=== PATIENT | male | born 1990 | race Caucasian/White ===

== ENCOUNTER 2016-11-22 20:45 | Emergency (ER) | payer MEDICAID ==
[~2016-11-22] VITALS: Ht 165.1 cm; Wt 81.8 kg
[~2016-11-22 20:45] MED LIST: HALO10TA15 PO; RISP3TAB44 PO
[2016-11-22 21:26] LABS: BASOPHILS % (AUTO) 0.2 % (0.0-2.0); EOSINOPHILS % (AUTO) 0.7 % (1.0-6.0); HEMATOCRIT 38.2 % (41-53); HEMOGLOBIN 13.1 g/dL (13.5-17.5); LYMPHOCYTES % (AUTO) 12.9 % (22.0-44.0); MEAN CORPUSCULAR HEMOGLOBIN 28.7 pg (26.0-34.0); MEAN CORPUSCULAR HGB CONC 34.3 G/dL (31.0-37.0); MEAN CORPUSCULAR VOLUME 84 fL (80-100); MONOCYTES # (AUTO) 0.5 K/uL (0.1-1.0); MONOCYTES % (AUTO) 5.9 % (2.0-9.0); NEUTROPHILS # (AUTO) 6.3 K/uL (1.8-7.7); NEUTROPHILS % (AUTO) 80.3 % (40.0-70.0); PLATELET COUNT (AUTO) 302 K/uL (150-450); RED BLOOD CELL COUNT(AUTO) 4.56 MIL/uL (4.50-5.90); RED CELL DISTRIBUTION WIDTH 13.5 % (11.5-14.5); WHITE BLOOD COUNT (AUTO) 7.9 K/uL (4.5-11.0)
[2016-11-22 21:32] LABS: ANION GAP 8 mmol/L (8-16); CALCIUM, TOTAL 8.8 mg/dL (8.8-10.5); CARBON DIOXIDE 32 mmol/L (22-29); CHLORIDE 102 mmol/L (98-107); GLOMERULAR FILTR. RATE CALC > 60 mL/min (>60); POTASSIUM 3.7 mmol/L (3.5-5.1); SODIUM SERUM 142 mmol/L (136-145); UREA NITROGEN, BLOOD 12 mg/dL (7-18)
[2016-11-22 21:38] LABS: ALANINE AMINOTRANSFERASE 44 U/L (12-78); ALBUMIN 3.7 g/dL (3.4-5.0); ASPARTATE AMINOTRANSFERASE 26 U/L (15-37); BILIRUBIN,TOTAL 0.4 mg/dL (0.1-1.0)
[2016-11-22 22:34] VITALS: BP 107/49
== END 2016-11-22 22:39 | disposition home or self-care (01) ==
LOC: EMS 20:47
DX: F20.9 Schizophrenia, unspecified (principal); R04.0 Epistaxis; R55 Syncope and collapse; F18.10 Inhalant abuse, uncomplicated; R11.10 Vomiting, unspecified; F17.210 Nicotine dependence, cigarettes, uncomplicated; F12.90 Cannabis use, unspecified, uncomplicated
CPT/HCPCS: 36415; 80053; 85025; 99284; 99406; G0480

== ENCOUNTER 2017-11-16 18:15 | Emergency (ER) | payer SELFPAY ==
[~2017-11-16] VITALS: Ht 167.6 cm; Wt 81.5 kg
[2017-11-16 19:14] LABS: BASOPHILS % (AUTO) 0.4 % (0.0-2.0); EOSINOPHILS % (AUTO) 0.8 % (1.0-6.0); HEMATOCRIT 38.4 % (41-53); HEMOGLOBIN 13.3 g/dL (13.5-17.5); LYMPHOCYTES # (AUTO) 1.3 K/uL (1.0-4.8); LYMPHOCYTES % (AUTO) 19.1 % (22.0-44.0); MEAN CORPUSCULAR HEMOGLOBIN 29.3 pg (26.0-34.0); MEAN CORPUSCULAR HGB CONC 34.7 G/dL (31.0-37.0); MEAN CORPUSCULAR VOLUME 85 fL (80-100); MONOCYTES # (AUTO) 0.8 K/uL (0.1-1.0); MONOCYTES % (AUTO) 11.3 % (2.0-9.0); NEUTROPHILS # (AUTO) 4.7 K/uL (1.8-7.7); NEUTROPHILS % (AUTO) 68.4 % (40.0-70.0); PLATELET COUNT (AUTO) 294 K/uL (150-450); RED BLOOD CELL COUNT(AUTO) 4.54 MIL/uL (4.50-5.90); RED CELL DISTRIBUTION WIDTH 13.9 % (11.5-14.5)
[2017-11-16 19:25] LABS: ANION GAP 10 mmol/L (8-16); CALCIUM, TOTAL 8.7 mg/dL (8.8-10.5); CARBON DIOXIDE 25 mmol/L (22-29); CHLORIDE 105 mmol/L (98-107); CREATININE 0.92 mg/dL (0.60-1.30); GLOMERULAR FILTR. RATE CALC > 60 mL/min (>60); GLUCOSE,RANDOM 131 mg/dL (70-110); POTASSIUM 3.6 mmol/L (3.5-5.1); SODIUM SERUM 140 mmol/L (136-145); UREA NITROGEN, BLOOD 15 mg/dL (7-18)
[2017-11-16 19:31] LABS: ALANINE AMINOTRANSFERASE 23 U/L (12-78); ALBUMIN 3.7 g/dL (3.4-5.0); ALKALINE PHOSPHATASE 72 U/L (46-116); ASPARTATE AMINOTRANSFERASE 23 U/L (15-37); BILIRUBIN,TOTAL 0.8 mg/dL (0.1-1.0); TOTAL PROTEIN, SERUM 7.2 g/dL (6.4-8.2)
[2017-11-16 20:25] LABS: AMPHET/METH SCREEN,URINE POSITIVE (NEGATIVE); BARBITURATE SCREEN, URINE NEGATIVE (NEGATIVE); BENZODIAZEPINES SCREEN,URINE NEGATIVE (NEGATIVE); CANNABINOID SCREEN,URINE POSITIVE (NEGATIVE); COCAINE SCREEN,URINE NEGATIVE (NEGATIVE); METHADONE SCREEN, URINE NEGATIVE (NEGATIVE); OPIATE SCREEN,URINE NEGATIVE (NEGATIVE); PHENCYCLIDINE SCREEN,URINE NEGATIVE (NEGATIVE)
[2017-11-16 21:54] VITALS: BP 119/82
== END 2017-11-16 21:57 | disposition home or self-care (01) ==
LOC: EMS 18:16
DX: F18.10 Inhalant abuse, uncomplicated (principal); F15.10 Other stimulant abuse, uncomplicated; F12.90 Cannabis use, unspecified, uncomplicated; F17.210 Nicotine dependence, cigarettes, uncomplicated
CPT/HCPCS: 36415; 80053; 80307; 85025; 99284; G0480

== ENCOUNTER 2017-11-24 16:33 | Emergency (ER) | payer SELFPAY ==
[~2017-11-24] VITALS: Ht 167.6 cm; Wt 81.8 kg
[2017-11-24 17:03] VITALS: BP 114/69
[2017-11-24 19:41] LABS: BASOPHILS % (AUTO) 0.3 % (0.0-2.0); EOSINOPHILS % (AUTO) 0.3 % (1.0-6.0); HEMOGLOBIN 14.4 g/dL (13.5-17.5); LYMPHOCYTES # (AUTO) 1.3 K/uL (1.0-4.8); LYMPHOCYTES % (AUTO) 16.7 % (22.0-44.0); MEAN CORPUSCULAR HEMOGLOBIN 29.4 pg (26.0-34.0); MEAN CORPUSCULAR HGB CONC 34.3 G/dL (31.0-37.0); MEAN CORPUSCULAR VOLUME 86 fL (80-100); MONOCYTES # (AUTO) 0.5 K/uL (0.1-1.0); MONOCYTES % (AUTO) 6.5 % (2.0-9.0); NEUTROPHILS # (AUTO) 6.2 K/uL (1.8-7.7); NEUTROPHILS % (AUTO) 76.2 % (40.0-70.0); PLATELET COUNT (AUTO) 395 K/uL (150-450); RED BLOOD CELL COUNT(AUTO) 4.89 MIL/uL (4.50-5.90); RED CELL DISTRIBUTION WIDTH 13.8 % (11.5-14.5)
[2017-11-24 20:00] LABS: ANION GAP 10 mmol/L (8-16); CALCIUM, TOTAL 8.8 mg/dL (8.8-10.5); CARBON DIOXIDE 28 mmol/L (22-29); CHLORIDE 104 mmol/L (98-107); CREATININE 0.88 mg/dL (0.60-1.30); GLOMERULAR FILTR. RATE CALC > 60 mL/min (>60); GLUCOSE,RANDOM 83 mg/dL (70-110); POTASSIUM 3.5 mmol/L (3.5-5.1); SODIUM SERUM 142 mmol/L (136-145); UREA NITROGEN, BLOOD 9 mg/dL (7-18)
[2017-11-24 20:07] LABS: ALANINE AMINOTRANSFERASE 24 U/L (12-78); ALBUMIN 3.9 g/dL (3.4-5.0); ALKALINE PHOSPHATASE 93 U/L (46-116); ASPARTATE AMINOTRANSFERASE 19 U/L (15-37); BILIRUBIN,TOTAL 0.4 mg/dL (0.1-1.0); TOTAL PROTEIN, SERUM 7.7 g/dL (6.4-8.2)
== END 2017-11-24 20:10 | disposition home or self-care (01) ==
LOC: EMS 16:34
DX: F29 Unspecified psychosis not due to a substance or known physiological condition (principal); L55.1 Sunburn of second degree; F18.10 Inhalant abuse, uncomplicated; F12.10 Cannabis abuse, uncomplicated; F17.210 Nicotine dependence, cigarettes, uncomplicated; F20.9 Schizophrenia, unspecified; Z79.899 Other long term (current) drug therapy
CPT/HCPCS: 36415; 80053; 85025; 99285; 99406; G0480

== ENCOUNTER 2017-11-25 22:04 | Emergency (ER) | payer SELFPAY ==
[~2017-11-25] VITALS: Ht 172.7 cm; Wt 81.8 kg
[2017-11-26 03:55] VITALS: BP 112/72
== END 2017-11-26 03:57 | disposition home or self-care (01) ==
LOC: EMS 22:04
DX: F19.10 Other psychoactive substance abuse, uncomplicated (principal); F20.9 Schizophrenia, unspecified; F17.210 Nicotine dependence, cigarettes, uncomplicated
CPT/HCPCS: 99283; 99406

== ENCOUNTER 2017-11-26 17:43 | Emergency (ER) | payer SELFPAY ==
[~2017-11-26] VITALS: Ht 167.6 cm; Wt 81.5 kg
[2017-11-26 21:27] LABS: BASOPHILS % (AUTO) 0.5 % (0.0-2.0); EOSINOPHILS % (AUTO) 1.2 % (1.0-6.0); HEMATOCRIT 42.4 % (41-53); HEMOGLOBIN 14.2 g/dL (13.5-17.5); LYMPHOCYTES # (AUTO) 1.4 K/uL (1.0-4.8); LYMPHOCYTES % (AUTO) 29.4 % (22.0-44.0); MEAN CORPUSCULAR HEMOGLOBIN 28.9 pg (26.0-34.0); MEAN CORPUSCULAR HGB CONC 33.6 G/dL (31.0-37.0); MEAN CORPUSCULAR VOLUME 86 fL (80-100); MONOCYTES # (AUTO) 0.4 K/uL (0.1-1.0); MONOCYTES % (AUTO) 7.8 % (2.0-9.0); NEUTROPHILS % (AUTO) 61.1 % (40.0-70.0); PLATELET COUNT (AUTO) 334 K/uL (150-450); RED BLOOD CELL COUNT(AUTO) 4.93 MIL/uL (4.50-5.90); RED CELL DISTRIBUTION WIDTH 13.5 % (11.5-14.5)
[2017-11-26 21:44] LABS: AMPHET/METH SCREEN,URINE NEGATIVE (NEGATIVE); BARBITURATE SCREEN, URINE NEGATIVE (NEGATIVE); BENZODIAZEPINES SCREEN,URINE NEGATIVE (NEGATIVE); CANNABINOID SCREEN,URINE NEGATIVE (NEGATIVE); COCAINE SCREEN,URINE NEGATIVE (NEGATIVE); METHADONE SCREEN, URINE NEGATIVE (NEGATIVE); OPIATE SCREEN,URINE NEGATIVE (NEGATIVE)
[2017-11-26 21:45] LABS: PHENCYCLIDINE SCREEN,URINE NEGATIVE (NEGATIVE)
[2017-11-26 22:10] LABS: ALANINE AMINOTRANSFERASE 25 U/L (12-78); ALBUMIN 3.7 g/dL (3.4-5.0); ALKALINE PHOSPHATASE 88 U/L (46-116); ANION GAP 8 mmol/L (8-16); ASPARTATE AMINOTRANSFERASE 19 U/L (15-37); BILIRUBIN,TOTAL 0.8 mg/dL (0.1-1.0); CALCIUM, TOTAL 8.6 mg/dL (8.8-10.5); CARBON DIOXIDE 27 mmol/L (22-29); CHLORIDE 104 mmol/L (98-107); GLOMERULAR FILTR. RATE CALC > 60 mL/min (>60); GLUCOSE,RANDOM 75 mg/dL (70-110); POTASSIUM 3.7 mmol/L (3.5-5.1); SODIUM SERUM 139 mmol/L (136-145); TOTAL PROTEIN, SERUM 7.5 g/dL (6.4-8.2); UREA NITROGEN, BLOOD 8 mg/dL (7-18)
[2017-11-26 23:32] VITALS: BP 120/70
== END 2017-11-26 23:40 | disposition home or self-care (01) ==
LOC: EMS 17:43
DX: F20.9 Schizophrenia, unspecified (principal); F12.10 Cannabis abuse, uncomplicated; F17.210 Nicotine dependence, cigarettes, uncomplicated; Z59.0 Homelessness
CPT/HCPCS: 36415; 80053; 80307; 85025; 99284; G0480

== ENCOUNTER 2018-03-10 15:14 | Inpatient (IN) | payer MEDICAID ==
[~2018-03-10] VITALS: Ht 167.6 cm; Wt 79.8 kg
[2018-03-10 16:18] VITALS: BP 148/100
[2018-03-10] MEDS ORDERED: OLAN2.5T3 PO (16:57)
[2018-03-10 18:01] VITALS: BP 133/85
[2018-03-10] MEDS ORDERED: BACITRACIN 28.4 GM OINTMENT TP PRN (20:00)
[2018-03-10] MEDS ORDERED: PETROLATUM,WHITE 71 GM JELLY TP PRN (20:00)
[2018-03-10] MEDS ORDERED: BENZOCAINE/MENTHOL LOZENGE MM PRN (20:00)
[2018-03-10] MEDS ORDERED: MAG HYDROX/AL HYDROX/SIMETH ES 30 ML SUSPENSION UDCUP PO PRN (20:00)
[2018-03-10] MEDS ORDERED: ONDANSETRON HCL 4 MG TABLET PO PRN (20:00)
[2018-03-10] MEDS ORDERED: ACETAMINOPHEN 325 MG TABLET PO PRN (20:00)
[2018-03-10] MEDS ORDERED: LOPERAMIDE HCL 2 MG CAPSULE PO PRN (20:00)
[2018-03-10] MEDS ORDERED: CloNIDine HCL 0.1 MG TABLET PO PRN (20:00)
[2018-03-10] MEDS ORDERED: MAGNESIUM HYDROXIDE SUSPENSION 30 ML UDCUP PO PRN (20:00)
[2018-03-10] MEDS ORDERED: OMEPRAZOLE 20 MG CAPSULE PO PRN (20:00)
[2018-03-10] MEDS ORDERED: DOCUSATE SODIUM 100 MG CAPSULE PO PRN (20:00)
[2018-03-10] MEDS ORDERED: ALBUTEROL SULFATE HFA 90 MCG/PUFF 8 GM INHALER IH PRN (20:00)
[2018-03-10] MEDS: OLANZapine 10 MG TABLET PO SCH (20:03)
[2018-03-10] MEDS: ZOLPIDEM TARTRATE 10 MG TABLET PO PRN (21:15)
[2018-03-11 06:23] VITALS: BP 112/68
[2018-03-11 07:49] LABS: BASOPHILS % (AUTO) 0.7 % (0.0-2.0); EOSINOPHILS % (AUTO) 2.5 % (1.0-6.0); HEMATOCRIT 48.5 % (41-53); HEMOGLOBIN 16.3 g/dL (13.5-17.5); LYMPHOCYTES # (AUTO) 1.6 K/uL (1.0-4.8); LYMPHOCYTES % (AUTO) 32.9 % (22.0-44.0); MEAN CORPUSCULAR HEMOGLOBIN 29.6 pg (26.0-34.0); MEAN CORPUSCULAR HGB CONC 33.5 G/dL (31.0-37.0); MEAN CORPUSCULAR VOLUME 88 fL (80-100); MONOCYTES # (AUTO) 0.5 K/uL (0.1-1.0); MONOCYTES % (AUTO) 10.7 % (2.0-9.0); NEUTROPHILS # (AUTO) 2.6 K/uL (1.8-7.7); NEUTROPHILS % (AUTO) 53.2 % (40.0-70.0); PLATELET COUNT (AUTO) 243 K/uL (150-450); RED BLOOD CELL COUNT(AUTO) 5.49 MIL/uL (4.50-5.90); RED CELL DISTRIBUTION WIDTH 13.3 % (11.5-14.5)
[2018-03-11 07:56] LABS: HEMOGLOBIN A1C 5.4 % (4.5-6.2)
[2018-03-11 08:01] VITALS: BP 110/64
[2018-03-11 08:50] LABS: ALANINE AMINOTRANSFERASE 29 U/L (12-78); ALKALINE PHOSPHATASE 106 U/L (46-116); ANION GAP 8 mmol/L (8-16); ASPARTATE AMINOTRANSFERASE 19 U/L (15-37); BILIRUBIN,TOTAL 0.4 mg/dL (0.1-1.0); CALCIUM, TOTAL 9.1 mg/dL (8.8-10.5); CARBON DIOXIDE 30 mmol/L (22-29); CHLORIDE 106 mmol/L (98-107); CHOL/HDL RATIO 2.9 (4.2-7.3); CHOLESTEROL 127 mg/dL (131-200); CREATININE 0.86 mg/dL (0.60-1.30); FREE T4 (FREE THYROXINE) 0.87 ng/dL (0.76-1.46); GLOMERULAR FILTR. RATE CALC > 60 mL/min (>60); GLUCOSE,RANDOM 85 mg/dL (70-110); HDL CHOLESTEROL 44 mg/dL (40-60); LDL CHOL (CALC.) 65 mg/dL (0-130); POTASSIUM 3.6 mmol/L (3.5-5.1); SODIUM SERUM 144 mmol/L (136-145); THYROID STIMULATING HORMONE 3.49 uIU/mL (0.36-3.74); TOTAL PROTEIN, SERUM 7.9 g/dL (6.4-8.2); TRIGLYCERIDES 90 mg/dL (15-150); UREA NITROGEN, BLOOD 14 mg/dL (7-18)
[2018-03-11] MEDS: QUEtiapine FUMARATE 200 MG TABLET PO SCH ×2 (10:56→20:44)
[2018-03-11 16:00] VITALS: BP 112/70
[2018-03-11] MEDS: LORazepam 2 MG TABLET PO PRN (16:39)
[2018-03-11] MEDS: HALOPERIDOL 5 MG TABLET PO PRN (16:39)
[2018-03-11] MEDS: ZOLPIDEM TARTRATE 10 MG TABLET PO PRN (20:44)
[2018-03-11] MEDS: OLANZapine 10 MG TABLET PO SCH (20:44)
[2018-03-12 05:31] VITALS: BP 107/69
[2018-03-12 08:02] VITALS: BP 106/64
[2018-03-12] MEDS: QUEtiapine FUMARATE 200 MG TABLET PO SCH ×2 (08:20→20:21)
[2018-03-12] MEDS: LORazepam 2 MG TABLET PO PRN ×2 (10:04→16:31)
[2018-03-12 16:00] VITALS: BP 117/74
[2018-03-12] MEDS: HALOPERIDOL 5 MG TABLET PO PRN (16:31)
[2018-03-12] MEDS: OLANZapine 10 MG TABLET PO SCH (20:21)
[2018-03-13 02:56] VITALS: BP 112/63
[2018-03-13 08:01] VITALS: BP 116/68
[2018-03-13] MEDS: QUEtiapine FUMARATE 200 MG TABLET PO SCH ×2 (08:04→20:55)
[2018-03-13] MEDS: HALOPERIDOL 5 MG TABLET PO PRN (09:01)
[2018-03-13] MEDS: LORazepam 2 MG TABLET PO PRN (09:01)
[2018-03-13 17:31] VITALS: BP 100/86
[2018-03-13] MEDS: OLANZapine 10 MG TABLET PO SCH (20:55)
[2018-03-13] MEDS: ZOLPIDEM TARTRATE 10 MG TABLET PO PRN (20:55)
[2018-03-14 03:41] VITALS: BP 112/87
[2018-03-14 08:01] VITALS: BP 135/89
[2018-03-14] MEDS: QUEtiapine FUMARATE 200 MG TABLET PO SCH ×2 (08:07→20:25)
[2018-03-14] MEDS: LORazepam 2 MG TABLET PO PRN (08:07)
[2018-03-14] MEDS: HALOPERIDOL 5 MG TABLET PO PRN (08:07)
[2018-03-14 16:00] VITALS: BP 108/65
[2018-03-14] MEDS: OLANZapine 10 MG TABLET PO SCH (20:25)
[2018-03-15 02:29] VITALS: BP 121/69
[2018-03-15 08:01] VITALS: BP 148/86
[2018-03-15] MEDS: HALOPERIDOL 5 MG TABLET PO PRN ×2 (08:21→16:33)
[2018-03-15] MEDS: LORazepam 2 MG TABLET PO PRN ×2 (08:21→16:32)
[2018-03-15] MEDS: QUEtiapine FUMARATE 200 MG TABLET PO SCH ×2 (08:21→20:50)
[2018-03-15 16:00] VITALS: BP 131/77
[2018-03-15] MEDS: OLANZapine 10 MG TABLET PO SCH (20:51)
[2018-03-16 05:00] VITALS: BP 117/76
[2018-03-16 08:02] VITALS: BP 126/70
[2018-03-16] MEDS: QUEtiapine FUMARATE 200 MG TABLET PO SCH ×2 (09:14→21:14)
[2018-03-16] MEDS: LORazepam 2 MG TABLET PO PRN (09:14)
[2018-03-16 16:00] VITALS: BP 112/63
[2018-03-16] MEDS: OLANZapine 10 MG TABLET PO SCH (21:14)
[2018-03-17 03:15] VITALS: BP 116/78
[2018-03-17] MEDS: QUEtiapine FUMARATE 200 MG TABLET PO SCH ×2 (08:00→20:35)
[2018-03-17 08:01] VITALS: BP 114/68
[2018-03-17] MEDS: LORazepam 2 MG TABLET PO PRN ×2 (08:56→16:07)
[2018-03-17] MEDS: HALOPERIDOL 5 MG TABLET PO PRN (08:56)
[2018-03-17 16:08] VITALS: BP 130/83
[2018-03-17] MEDS: IBUPROFEN 600 MG TABLET PO PRN ×2 (16:08→23:47)
[2018-03-17 16:26] VITALS: BP 130/83
[2018-03-17] MEDS: OLANZapine 10 MG TABLET PO SCH (20:35)
[2018-03-17 21:55] VITALS: BP 131/89
[2018-03-18 01:20] VITALS: BP 127/85
[2018-03-18] MEDS: LORazepam 2 MG TABLET PO PRN ×3 (08:21→20:33)
[2018-03-18] MEDS: QUEtiapine FUMARATE 200 MG TABLET PO SCH ×2 (08:21→20:33)
[2018-03-18 08:48] VITALS: BP 138/86
[2018-03-18] MEDS ORDERED: BENZOCAINE 10% 7 GM GEL TP PRN (12:00)
[2018-03-18] MEDS: HALOPERIDOL 5 MG TABLET PO PRN (12:22)
[2018-03-18 16:20] VITALS: BP 124/74
[2018-03-18] MEDS: OLANZapine 10 MG TABLET PO SCH (20:32)
[2018-03-19 05:06] VITALS: BP 132/72
[2018-03-19] MEDS: QUEtiapine FUMARATE 200 MG TABLET PO SCH ×2 (08:18→20:46)
[2018-03-19 08:48] VITALS: BP 115/77
[2018-03-19] MEDS: HALOPERIDOL 5 MG TABLET PO PRN ×2 (10:33→16:14)
[2018-03-19] MEDS: LORazepam 2 MG TABLET PO PRN ×2 (10:33→16:14)
[2018-03-19 16:01] VITALS: BP 114/70
[2018-03-19] MEDS: OLANZapine 10 MG TABLET PO SCH (20:46)
[2018-03-20 03:41] VITALS: BP 133/78
[2018-03-20 08:01] VITALS: BP 132/67
[2018-03-20] MEDS: QUEtiapine FUMARATE 200 MG TABLET PO SCH ×2 (08:54→20:57)
[2018-03-20 16:02] VITALS: BP 128/72
[2018-03-20] MEDS: OLANZapine 10 MG TABLET PO SCH (20:57)
[2018-03-21 02:23] VITALS: BP 123/68
[2018-03-21] MEDS: QUEtiapine FUMARATE 200 MG TABLET PO SCH ×2 (08:16→20:55)
[2018-03-21 08:36] VITALS: BP 145/73
[2018-03-21 16:00] VITALS: BP 114/69
[2018-03-21] MEDS ORDERED: TUBERCULIN, PURIFIED PROTEIN DERIVATIVE 5 TU/0.1 ML SYG ID ONE (16:45)
[2018-03-21] MEDS: OLANZapine 10 MG TABLET PO SCH (20:55)
[2018-03-22 06:31] VITALS: BP 109/79
[2018-03-22 08:02] VITALS: BP 140/72
[2018-03-22] MEDS: QUEtiapine FUMARATE 200 MG TABLET PO SCH ×2 (08:09→21:08)
[2018-03-22 16:00] VITALS: BP 118/76
[2018-03-22] MEDS: OLANZapine 10 MG TABLET PO SCH (21:08)
[2018-03-23 06:28] VITALS: BP 122/84
[2018-03-23 08:01] VITALS: BP 120/78
[2018-03-23] MEDS: QUEtiapine FUMARATE 200 MG TABLET PO SCH ×2 (08:34→20:45)
[2018-03-23 16:21] VITALS: BP 114/66
[2018-03-23] MEDS: OLANZapine 10 MG TABLET PO SCH (20:45)
[2018-03-24 05:21] VITALS: BP 118/78
[2018-03-24 08:14] VITALS: BP 136/88
[2018-03-24] MEDS: QUEtiapine FUMARATE 200 MG TABLET PO SCH ×2 (08:22→20:00)
[2018-03-24] MEDS ORDERED: OLAN10TA3 PO (08:34)
[2018-03-24] MEDS ORDERED: QUET200T PO (08:34)
[2018-03-24 16:14] VITALS: BP 118/71
[2018-03-24] MEDS: OLANZapine 10 MG TABLET PO SCH (20:00)
[2018-03-25 01:06] VITALS: BP 103/64
[2018-03-25 08:32] VITALS: BP 115/60
[2018-03-25] MEDS: QUEtiapine FUMARATE 200 MG TABLET PO SCH (08:48)
== END 2018-03-25 10:05 | disposition home or self-care (01) | DRG 750 ==
LOC: B3A 16:51 → B2S 03-24 11:47
PROVIDERS: ADMIT Psychiatry & Neurology Psychiatry; ATTEND Psychiatry & Neurology Psychiatry
DX: F20.9 Schizophrenia, unspecified (principal); R45.851 Suicidal ideations; Z59.0 Homelessness; F41.9 Anxiety disorder, unspecified; K59.00 Constipation, unspecified; G47.00 Insomnia, unspecified; R76.11 Nonspecific reaction to tuberculin skin test without active tuberculosis; F60.0 Paranoid personality disorder; R45.87 Impulsiveness; Z23 Encounter for immunization; Z91.5 Personal history of self-harm; Z56.0 Unemployment, unspecified
CPT/HCPCS: 83036; 84439; 84443; 90686; Q0162

== ENCOUNTER 2018-05-13 22:02 | Inpatient (IN) | payer MEDICAID ==
[~2018-05-13] VITALS: Ht 167.6 cm; Wt 84.8 kg
[~2018-05-13 22:02] MED LIST changes: -HALO10TA15 PO; +OLAN10TA3 PO; +QUET200T PO; -RISP3TAB44 PO
[2018-05-13 23:36] LABS: BASOPHILS % (AUTO) 0.6 % (0.0-2.0); EOSINOPHILS % (AUTO) 2.1 % (1.0-6.0); HEMATOCRIT 39.6 % (41-53); HEMOGLOBIN 13.3 g/dL (13.5-17.5); LYMPHOCYTES # (AUTO) 1.6 K/uL (1.0-4.8); LYMPHOCYTES % (AUTO) 28.8 % (22.0-44.0); MEAN CORPUSCULAR HEMOGLOBIN 29.6 pg (26.0-34.0); MEAN CORPUSCULAR HGB CONC 33.6 G/dL (31.0-37.0); MEAN CORPUSCULAR VOLUME 88 fL (80-100); MONOCYTES # (AUTO) 0.7 K/uL (0.1-1.0); MONOCYTES % (AUTO) 11.7 % (2.0-9.0); NEUTROPHILS # (AUTO) 3.3 K/uL (1.8-7.7); NEUTROPHILS % (AUTO) 56.8 % (40.0-70.0); PLATELET COUNT (AUTO) 252 K/uL (150-450); RED CELL DISTRIBUTION WIDTH 13.2 % (11.5-14.5)
[2018-05-13] MEDS ORDERED: ZOLPIDEM TARTRATE 10 MG TABLET PO PRN (23:45)
[2018-05-13 23:57] LABS: ALANINE AMINOTRANSFERASE 20 U/L (12-78); ALBUMIN 3.3 g/dL (3.4-5.0); ALKALINE PHOSPHATASE 94 U/L (46-116); ANION GAP 6 mmol/L (8-16); ASPARTATE AMINOTRANSFERASE 25 U/L (15-37); BILIRUBIN,TOTAL 0.3 mg/dL (0.1-1.0); CALCIUM, TOTAL 8.6 mg/dL (8.8-10.5); CARBON DIOXIDE 30 mmol/L (22-29); CHLORIDE 107 mmol/L (98-107); CREATININE 0.66 mg/dL (0.60-1.30); GLOMERULAR FILTR. RATE CALC > 60 mL/min (>60); GLUCOSE,RANDOM 89 mg/dL (70-110); POTASSIUM 3.6 mmol/L (3.5-5.1); SODIUM SERUM 143 mmol/L (136-145); TOTAL PROTEIN, SERUM 6.5 g/dL (6.4-8.2)
[2018-05-14 00:06] LABS: UREA NITROGEN, BLOOD 11 mg/dL (7-18)
[2018-05-14 03:38] VITALS: BP 125/75
[2018-05-14 08:49] VITALS: BP 115/63
[2018-05-14] MEDS: QUEtiapine FUMARATE 200 MG TABLET PO SCH ×2 (10:15→20:58)
[2018-05-14 16:49] VITALS: BP 109/69
[2018-05-14] MEDS: OLANZapine 10 MG TABLET PO SCH (20:58)
[2018-05-14] MEDS ORDERED: LOPERAMIDE HCL 2 MG CAPSULE PO PRN (22:15)
[2018-05-14] MEDS ORDERED: ALBUTEROL SULFATE HFA 90 MCG/PUFF 8 GM INHALER IH PRN (22:15)
[2018-05-14] MEDS ORDERED: ONDANSETRON HCL 4 MG TABLET PO PRN (22:15)
[2018-05-14] MEDS ORDERED: IBUPROFEN 600 MG TABLET PO PRN (22:15)
[2018-05-14] MEDS ORDERED: BENZOCAINE/MENTHOL LOZENGE MM PRN (22:15)
[2018-05-14] MEDS ORDERED: CloNIDine HCL 0.1 MG TABLET PO PRN (22:15)
[2018-05-14] MEDS ORDERED: PETROLATUM,WHITE 71 GM JELLY TP PRN (22:15)
[2018-05-14] MEDS ORDERED: MAGNESIUM HYDROXIDE SUSPENSION 30 ML UDCUP PO PRN (22:15)
[2018-05-14] MEDS ORDERED: MAG HYDROX/AL HYDROX/SIMETH ES 30 ML SUSPENSION UDCUP PO PRN (22:15)
[2018-05-14] MEDS ORDERED: BACITRACIN 28.4 GM OINTMENT TP PRN (22:15)
[2018-05-14] MEDS ORDERED: OMEPRAZOLE 20 MG CAPSULE PO PRN (22:15)
[2018-05-14] MEDS ORDERED: ACETAMINOPHEN 325 MG TABLET PO PRN (22:15)
[2018-05-15 08:39] VITALS: BP 123/72
[2018-05-15] MEDS: QUEtiapine FUMARATE 200 MG TABLET PO SCH ×2 (09:00→20:26)
[2018-05-15 16:00] VITALS: BP 114/63
[2018-05-15] MEDS: OLANZapine 10 MG TABLET PO SCH (20:27)
[2018-05-16 08:44] VITALS: BP 150/68
[2018-05-16] MEDS: DOCUSATE SODIUM 100 MG CAPSULE PO PRN (10:44)
[2018-05-16] MEDS: QUEtiapine FUMARATE 200 MG TABLET PO SCH ×2 (10:44→20:34)
[2018-05-16 19:28] VITALS: BP 114/62
[2018-05-16] MEDS: OLANZapine 10 MG TABLET PO SCH (20:34)
[2018-05-17 09:55] VITALS: BP 122/63
[2018-05-17] MEDS: QUEtiapine FUMARATE 200 MG TABLET PO SCH ×2 (10:50→21:00)
[2018-05-17] MEDS: HALOPERIDOL 5 MG TABLET PO PRN (11:41)
[2018-05-17] MEDS: LORazepam 2 MG TABLET PO PRN (11:41)
[2018-05-17 16:30] VITALS: BP 102/64
[2018-05-17] MEDS: OLANZapine 10 MG TABLET PO SCH (21:00)
[2018-05-18 09:19] VITALS: BP 127/74
[2018-05-18] MEDS: HALOPERIDOL 5 MG TABLET PO PRN (09:40)
[2018-05-18] MEDS: LORazepam 2 MG TABLET PO PRN (09:40)
[2018-05-18] MEDS: DOCUSATE SODIUM 100 MG CAPSULE PO PRN (09:40)
[2018-05-18] MEDS: QUEtiapine FUMARATE 200 MG TABLET PO SCH ×2 (09:40→20:42)
[2018-05-18 19:08] VITALS: BP 117/67
[2018-05-18] MEDS: OLANZapine 10 MG TABLET PO SCH (20:42)
[2018-05-19] MEDS: QUEtiapine FUMARATE 200 MG TABLET PO SCH ×2 (08:31→21:00)
[2018-05-19] MEDS: LORazepam 2 MG TABLET PO PRN (08:32)
[2018-05-19 08:51] VITALS: BP 118/67
[2018-05-19 17:01] VITALS: BP 114/70
[2018-05-19] MEDS: OLANZapine 10 MG RAPDIS TABLET PO SCH (20:59)
[2018-05-20 04:25] VITALS: BP 132/91
[2018-05-20] MEDS: QUEtiapine FUMARATE 200 MG TABLET PO SCH ×2 (08:40→20:21)
[2018-05-20] MEDS: LORazepam 2 MG TABLET PO PRN (08:40)
[2018-05-20 10:33] VITALS: BP 138/91
[2018-05-20 17:08] VITALS: BP 112/72
[2018-05-20] MEDS: OLANZapine 10 MG RAPDIS TABLET PO SCH (20:21)
[2018-05-21] MEDS: QUEtiapine FUMARATE 200 MG TABLET PO SCH ×2 (09:39→20:22)
[2018-05-21 10:21] VITALS: BP 131/81
[2018-05-21 16:42] VITALS: BP 124/67
[2018-05-21] MEDS: OLANZapine 10 MG RAPDIS TABLET PO SCH (20:22)
[2018-05-22] MEDS: QUEtiapine FUMARATE 200 MG TABLET PO SCH ×2 (09:42→20:28)
[2018-05-22 10:37] VITALS: BP 121/75
[2018-05-22 18:00] VITALS: BP 122/70
[2018-05-22] MEDS: OLANZapine 10 MG RAPDIS TABLET PO SCH (20:28)
[2018-05-23] MEDS: QUEtiapine FUMARATE 200 MG TABLET PO SCH ×2 (08:27→20:12)
[2018-05-23 09:40] VITALS: BP 131/81
[2018-05-23 17:22] VITALS: BP 121/69
[2018-05-23] MEDS: OLANZapine 10 MG RAPDIS TABLET PO SCH (20:12)
[2018-05-24 08:34] VITALS: BP 125/94
[2018-05-24] MEDS: QUEtiapine FUMARATE 200 MG TABLET PO SCH ×2 (10:01→20:23)
[2018-05-24 16:00] VITALS: BP 112/62
[2018-05-24] MEDS: OLANZapine 10 MG RAPDIS TABLET PO SCH (20:24)
[2018-05-25] MEDS: DOCUSATE SODIUM 100 MG CAPSULE PO PRN (02:39)
[2018-05-25 02:43] VITALS: BP 128/83
[2018-05-25] MEDS: QUEtiapine FUMARATE 200 MG TABLET PO SCH ×2 (09:00→21:20)
[2018-05-25 09:25] VITALS: BP 134/74
[2018-05-25 19:21] VITALS: BP 145/84
[2018-05-25] MEDS: OLANZapine 10 MG RAPDIS TABLET PO SCH (21:20)
[2018-05-26 08:00] VITALS: BP 140/67
[2018-05-26] MEDS: QUEtiapine FUMARATE 200 MG TABLET PO SCH ×2 (09:00→20:48)
[2018-05-26 16:33] VITALS: BP 117/70
[2018-05-26] MEDS: OLANZapine 10 MG RAPDIS TABLET PO SCH (20:48)
[2018-05-27 08:00] VITALS: BP 109/67
[2018-05-27] MEDS: QUEtiapine FUMARATE 200 MG TABLET PO SCH ×2 (12:07→20:15)
[2018-05-27 17:10] VITALS: BP 111/63
[2018-05-27] MEDS: OLANZapine 10 MG RAPDIS TABLET PO SCH (20:15)
[2018-05-28] MEDS: QUEtiapine FUMARATE 200 MG TABLET PO SCH ×2 (09:00→20:22)
[2018-05-28 11:04] VITALS: BP 134/75
[2018-05-28 16:29] VITALS: BP 126/72
[2018-05-28] MEDS: OLANZapine 10 MG RAPDIS TABLET PO SCH (20:22)
[2018-05-29 08:02] VITALS: BP 137/78
[2018-05-29] MEDS: QUEtiapine FUMARATE 200 MG TABLET PO SCH ×2 (08:59→21:00)
[2018-05-29] MEDS: OLANZapine 10 MG RAPDIS TABLET PO SCH (21:00)
[2018-05-30 02:53] VITALS: BP 138/76
[2018-05-30] MEDS: QUEtiapine FUMARATE 200 MG TABLET PO SCH ×2 (09:09→20:43)
[2018-05-30 09:16] VITALS: BP 122/80
[2018-05-30 19:00] VITALS: BP 120/73
[2018-05-30] MEDS: OLANZapine 10 MG RAPDIS TABLET PO SCH (20:43)
[2018-05-31] MEDS: QUEtiapine FUMARATE 200 MG TABLET PO SCH ×2 (09:00→20:48)
[2018-05-31] MEDS: OLANZapine 10 MG RAPDIS TABLET PO SCH (20:48)
[2018-05-31 21:24] VITALS: BP 121/14
[2018-06-01] MEDS: QUEtiapine FUMARATE 200 MG TABLET PO SCH ×2 (09:17→20:02)
[2018-06-01 17:07] VITALS: BP 126/68
[2018-06-01] MEDS: OLANZapine 10 MG RAPDIS TABLET PO SCH (20:02)
[2018-06-02] MEDS: QUEtiapine FUMARATE 200 MG TABLET PO SCH ×2 (09:03→21:20)
[2018-06-02 10:26] VITALS: BP 112/63
[2018-06-02 17:00] VITALS: BP 147/95
[2018-06-02] MEDS: OLANZapine 10 MG RAPDIS TABLET PO SCH (21:20)
[2018-06-03 08:05] VITALS: BP 135/69
[2018-06-03] MEDS: QUEtiapine FUMARATE 200 MG TABLET PO SCH ×2 (09:20→22:00)
[2018-06-03] MEDS: OLANZapine 10 MG RAPDIS TABLET PO SCH (22:00)
[2018-06-04 08:05] VITALS: BP 120/82
[2018-06-04] MEDS: QUEtiapine FUMARATE 200 MG TABLET PO SCH ×2 (09:28→20:43)
[2018-06-04] MEDS ORDERED: TUBERCULIN, PURIFIED PROTEIN DERIVATIVE 5 TU/0.1 ML SYG ID ONE (13:15)
[2018-06-04 17:33] VITALS: BP 126/72
[2018-06-04] MEDS: OLANZapine 10 MG RAPDIS TABLET PO SCH (20:44)
[2018-06-05] MEDS: QUEtiapine FUMARATE 200 MG TABLET PO SCH ×2 (09:24→20:18)
[2018-06-05 09:29] VITALS: BP 115/63
[2018-06-05] MEDS: OLANZapine 10 MG RAPDIS TABLET PO SCH (20:18)
[2018-06-05 21:04] VITALS: BP 109/64
[2018-06-06] MEDS: QUEtiapine FUMARATE 200 MG TABLET PO SCH ×2 (09:31→20:50)
[2018-06-06 09:45] VITALS: BP_SYST 112; BP_SYST 136; BP_DIAS 68
[2018-06-06] MEDS: OLANZapine 10 MG RAPDIS TABLET PO SCH (20:51)
[2018-06-06 21:12] VITALS: BP 119/70
[2018-06-07] MEDS: QUEtiapine FUMARATE 200 MG TABLET PO SCH ×2 (10:13→20:34)
[2018-06-07] MEDS: OLANZapine 10 MG RAPDIS TABLET PO SCH (20:34)
[2018-06-08] MEDS: QUEtiapine FUMARATE 200 MG TABLET PO SCH (08:50)
[2018-06-08 09:44] VITALS: BP 123/77
== END 2018-06-08 12:54 | disposition home or self-care (01) | DRG 750 ==
LOC: EMS 22:03 → 3EI 05-14 00:01
PROVIDERS: ADMIT Psychiatry & Neurology Child & Adolescent Psychiatry; ATTEND Psychiatry & Neurology Child & Adolescent Psychiatry
DX: F20.0 Paranoid schizophrenia (principal); E83.51 Hypocalcemia; R45.851 Suicidal ideations; D64.9 Anemia, unspecified; F12.90 Cannabis use, unspecified, uncomplicated; F17.210 Nicotine dependence, cigarettes, uncomplicated; F41.9 Anxiety disorder, unspecified; G47.00 Insomnia, unspecified; K59.00 Constipation, unspecified; Z79.899 Other long term (current) drug therapy; Z71.6 Tobacco abuse counseling; Z71.51 Drug abuse counseling and surveillance of drug abuser
CPT/HCPCS: 87081; 99406; G0480

== ENCOUNTER 2018-06-11 21:37 | Inpatient (IN) | payer MEDICAID ==
[~2018-06-11] VITALS: Ht 167.6 cm; Wt 80.9 kg
[2018-06-11 23:19] LABS: BASOPHILS % (AUTO) 0.3 % (0.0-2.0); EOSINOPHILS % (AUTO) 0.5 % (1.0-6.0); HEMATOCRIT 43.1 % (41-53); HEMOGLOBIN 14.4 g/dL (13.5-17.5); LYMPHOCYTES # (AUTO) 1.3 K/uL (1.0-4.8); LYMPHOCYTES % (AUTO) 16.7 % (22.0-44.0); MEAN CORPUSCULAR HEMOGLOBIN 29.1 pg (26.0-34.0); MEAN CORPUSCULAR HGB CONC 33.4 G/dL (31.0-37.0); MEAN CORPUSCULAR VOLUME 87 fL (80-100); MONOCYTES # (AUTO) 0.7 K/uL (0.1-1.0); MONOCYTES % (AUTO) 8.4 % (2.0-9.0); NEUTROPHILS # (AUTO) 5.9 K/uL (1.8-7.7); NEUTROPHILS % (AUTO) 74.1 % (40.0-70.0); PLATELET COUNT (AUTO) 273 K/uL (150-450); RED BLOOD CELL COUNT(AUTO) 4.95 MIL/uL (4.50-5.90); RED CELL DISTRIBUTION WIDTH 13.1 % (11.5-14.5)
[2018-06-11 23:30] LABS: ANION GAP 8 mmol/L (8-16); CARBON DIOXIDE 31 mmol/L (22-29); CHLORIDE 102 mmol/L (98-107); CREATININE 0.84 mg/dL (0.60-1.30); GLOMERULAR FILTR. RATE CALC > 60 mL/min (>60); GLUCOSE,RANDOM 85 mg/dL (70-110); POTASSIUM 4.2 mmol/L (3.5-5.1); SODIUM SERUM 141 mmol/L (136-145); UREA NITROGEN, BLOOD 17 mg/dL (7-18)
[2018-06-11 23:35] LABS: ALANINE AMINOTRANSFERASE 62 U/L (12-78); ALBUMIN 3.6 g/dL (3.4-5.0); ALKALINE PHOSPHATASE 75 U/L (46-116); ASPARTATE AMINOTRANSFERASE 41 U/L (15-37); BILIRUBIN,TOTAL 0.5 mg/dL (0.1-1.0); TOTAL PROTEIN, SERUM 7.3 g/dL (6.4-8.2)
[2018-06-12 01:15] LABS: AMPHET/METH SCREEN,URINE POSITIVE (NEGATIVE); BARBITURATE SCREEN, URINE NEGATIVE (NEGATIVE); BENZODIAZEPINES SCREEN,URINE NEGATIVE (NEGATIVE); CANNABINOID SCREEN,URINE NEGATIVE (NEGATIVE); COCAINE SCREEN,URINE NEGATIVE (NEGATIVE); METHADONE SCREEN, URINE NEGATIVE (NEGATIVE); OPIATE SCREEN,URINE NEGATIVE (NEGATIVE)
[2018-06-12 01:16] LABS: PHENCYCLIDINE SCREEN,URINE NEGATIVE (NEGATIVE)
[2018-06-12] MEDS ORDERED: ZOLPIDEM TARTRATE 10 MG TABLET PO PRN (01:45)
[2018-06-12 03:08] VITALS: BP 130/81
[2018-06-12] MEDS ORDERED: ONDANSETRON HCL 4 MG TABLET PO PRN (06:45)
[2018-06-12] MEDS ORDERED: IBUPROFEN 400 MG TABLET PO PRN (06:45)
[2018-06-12] MEDS ORDERED: MAGNESIUM HYDROXIDE SUSPENSION 30 ML UDCUP PO PRN (06:45)
[2018-06-12] MEDS ORDERED: LOPERAMIDE HCL 2 MG CAPSULE PO PRN (06:45)
[2018-06-12] MEDS ORDERED: NICOTINE 14 MG/24 HOUR PATCH TD PRN (06:45)
[2018-06-12] MEDS ORDERED: ACETAMINOPHEN 325 MG TABLET PO PRN (06:45)
[2018-06-12] MEDS ORDERED: PETROLATUM,WHITE 71 GM JELLY TP PRN (06:45)
[2018-06-12] MEDS ORDERED: CloNIDine HCL 0.1 MG TABLET PO PRN (06:45)
[2018-06-12] MEDS ORDERED: DOCUSATE SODIUM 100 MG CAPSULE PO PRN (06:45)
[2018-06-12] MEDS ORDERED: ALBUTEROL SULFATE HFA 90 MCG/PUFF 8 GM INHALER IH PRN (06:45)
[2018-06-12] MEDS ORDERED: GuaiFENesin/D-METHORPHAN [SUGAR-FREE] 200-20MG/10 ML SYRUP UDCUP PO PRN (06:45)
[2018-06-12 08:34] VITALS: BP 118/65
[2018-06-12 09:09] LABS: HEMOGLOBIN A1C 5.2 % (4.5-6.2)
[2018-06-12 09:23] LABS: CHOL/HDL RATIO 3.9 (4.2-7.3); FREE T4 (FREE THYROXINE) 1.11 ng/dL (0.76-1.46); THYROID STIMULATING HORMONE 2.85 uIU/mL (0.36-3.74)
[2018-06-12] MEDS: OLANZapine 10 MG TABLET PO SCH (17:07)
[2018-06-12 17:49] VITALS: BP 120/79
[2018-06-13 04:00] VITALS: BP 124/84
[2018-06-13] MEDS: OLANZapine 10 MG TABLET PO SCH ×2 (08:44→16:35)
[2018-06-13 16:26] VITALS: BP 105/71
[2018-06-13] MEDS: QUEtiapine FUMARATE 200 MG TABLET PO SCH (20:22)
[2018-06-14 02:04] VITALS: BP 116/74
[2018-06-14] MEDS: OLANZapine 10 MG TABLET PO SCH ×2 (09:15→16:37)
[2018-06-14] MEDS: QUEtiapine FUMARATE 200 MG TABLET PO SCH ×2 (09:15→21:00)
[2018-06-15 02:27] VITALS: BP 110/76
[2018-06-15] MEDS: OLANZapine 10 MG TABLET PO SCH ×2 (09:17→16:39)
[2018-06-15] MEDS: QUEtiapine FUMARATE 200 MG TABLET PO SCH ×2 (09:17→21:00)
[2018-06-16 00:44] VITALS: BP 111/67
[2018-06-16 09:06] VITALS: BP 122/73
[2018-06-16] MEDS: OLANZapine 10 MG TABLET PO SCH ×2 (09:20→17:09)
[2018-06-16] MEDS: QUEtiapine FUMARATE 200 MG TABLET PO SCH ×2 (09:20→20:52)
[2018-06-16 09:42] LABS: CHOL/HDL RATIO 3.8 (4.2-7.3)
[2018-06-16 17:37] VITALS: BP 106/68
[2018-06-17 01:02] VITALS: BP 111/62
[2018-06-17 08:51] VITALS: BP 111/71
[2018-06-17] MEDS: OLANZapine 10 MG TABLET PO SCH ×2 (08:59→16:33)
[2018-06-17] MEDS: QUEtiapine FUMARATE 200 MG TABLET PO SCH ×2 (08:59→20:45)
[2018-06-17 16:27] VITALS: BP 109/77
[2018-06-18 00:23] VITALS: BP 128/72
[2018-06-18] MEDS: QUEtiapine FUMARATE 200 MG TABLET PO SCH ×2 (09:10→20:54)
[2018-06-18] MEDS: OLANZapine 10 MG TABLET PO SCH ×2 (09:10→16:42)
[2018-06-18 09:25] VITALS: BP 117/63
[2018-06-18 16:14] VITALS: BP 128/73
[2018-06-18] MEDS: HALOPERIDOL 5 MG TABLET PO PRN (16:42)
[2018-06-18] MEDS: LORazepam 2 MG TABLET PO PRN (16:42)
[2018-06-19 06:24] VITALS: BP 109/63
[2018-06-19 08:45] VITALS: BP 120/65
[2018-06-19] MEDS: OLANZapine 10 MG TABLET PO SCH ×2 (09:03→16:27)
[2018-06-19] MEDS: QUEtiapine FUMARATE 200 MG TABLET PO SCH ×2 (09:03→20:29)
[2018-06-19] MEDS: LORazepam 2 MG TABLET PO PRN (16:27)
[2018-06-19] MEDS: HALOPERIDOL 5 MG TABLET PO PRN (16:27)
[2018-06-19 19:01] VITALS: BP 105/72
[2018-06-20 01:11] VITALS: BP 119/62
[2018-06-20 09:10] VITALS: BP 131/66
[2018-06-20] MEDS: QUEtiapine FUMARATE 200 MG TABLET PO SCH ×2 (09:28→20:25)
[2018-06-20] MEDS: OLANZapine 10 MG TABLET PO SCH ×2 (09:28→16:25)
[2018-06-20 16:18] VITALS: BP 110/69
[2018-06-21 03:35] VITALS: BP 120/81
[2018-06-21] MEDS: QUEtiapine FUMARATE 200 MG TABLET PO SCH ×2 (09:00→20:43)
[2018-06-21] MEDS: OLANZapine 10 MG TABLET PO SCH ×2 (09:00→16:21)
[2018-06-21 10:06] VITALS: BP 125/62
[2018-06-21 16:10] VITALS: BP 117/64
[2018-06-21] MEDS: MAG HYDROX/AL HYDROX/SIMETH ES 30 ML SUSPENSION UDCUP PO PRN (23:48)
[2018-06-22] MEDS: OLANZapine 10 MG TABLET PO SCH ×2 (08:41→16:21)
[2018-06-22] MEDS: QUEtiapine FUMARATE 200 MG TABLET PO SCH ×2 (08:41→20:27)
[2018-06-22 09:26] VITALS: BP 118/70
[2018-06-22 16:17] VITALS: BP 120/68
[2018-06-23 00:18] VITALS: BP 103/61
[2018-06-23 09:14] VITALS: BP 121/68
[2018-06-23] MEDS: QUEtiapine FUMARATE 200 MG TABLET PO SCH ×2 (09:26→20:15)
[2018-06-23] MEDS: OLANZapine 10 MG TABLET PO SCH ×2 (09:26→16:20)
[2018-06-23 16:48] VITALS: BP 113/62
[2018-06-24 01:09] VITALS: BP 108/68
[2018-06-24 08:41] VITALS: BP 109/70
[2018-06-24] MEDS: OLANZapine 10 MG TABLET PO SCH ×2 (08:43→16:17)
[2018-06-24] MEDS: QUEtiapine FUMARATE 200 MG TABLET PO SCH ×2 (08:43→20:14)
[2018-06-24 16:58] VITALS: BP 114/70
[2018-06-25 01:00] VITALS: BP 120/62
[2018-06-25] MEDS: QUEtiapine FUMARATE 200 MG TABLET PO SCH ×2 (08:25→20:56)
[2018-06-25] MEDS: OLANZapine 10 MG TABLET PO SCH ×2 (08:25→16:36)
[2018-06-25 08:49] VITALS: BP 118/68
[2018-06-25 17:35] VITALS: BP 111/62
[2018-06-26 02:55] VITALS: BP 121/70
[2018-06-26 08:40] VITALS: BP 114/67
[2018-06-26] MEDS: QUEtiapine FUMARATE 200 MG TABLET PO SCH ×2 (08:46→20:17)
[2018-06-26] MEDS: OLANZapine 10 MG TABLET PO SCH ×2 (08:46→16:09)
[2018-06-26 16:23] VITALS: BP 118/82
[2018-06-27 06:23] VITALS: BP 120/81
[2018-06-27 08:12] VITALS: BP 137/68
[2018-06-27] MEDS: QUEtiapine FUMARATE 200 MG TABLET PO SCH ×2 (08:51→19:16)
[2018-06-27] MEDS: OLANZapine 10 MG TABLET PO SCH ×2 (08:51→16:57)
[2018-06-27 16:14] VITALS: BP 111/72
[2018-06-27] MEDS: MAG HYDROX/AL HYDROX/SIMETH ES 30 ML SUSPENSION UDCUP PO PRN (23:58)
[2018-06-28 00:50] VITALS: BP 105/63
[2018-06-28 08:35] VITALS: BP 123/65
[2018-06-28] MEDS: QUEtiapine FUMARATE 200 MG TABLET PO SCH ×2 (09:26→20:09)
[2018-06-28] MEDS: OLANZapine 10 MG TABLET PO SCH ×2 (09:26→16:44)
[2018-06-28 16:27] VITALS: BP 110/64
[2018-06-29 01:29] VITALS: BP 112/76
== END 2018-06-29 07:01 | disposition home or self-care (01) | DRG 750 ==
LOC: EMS 21:38 → B2S 06-12 01:39
PROVIDERS: ADMIT Psychiatry & Neurology Psychiatry; ATTEND Psychiatry & Neurology Child & Adolescent Psychiatry
DX: F20.0 Paranoid schizophrenia (principal); R45.851 Suicidal ideations; R74.0 Nonspecific elevation of levels of transaminase and lactic acid dehydrogenase [LDH]; G47.00 Insomnia, unspecified; D64.9 Anemia, unspecified; F19.10 Other psychoactive substance abuse, uncomplicated; F17.210 Nicotine dependence, cigarettes, uncomplicated; Z59.0 Homelessness; Z71.6 Tobacco abuse counseling; Z91.5 Personal history of self-harm; Z71.41 Alcohol abuse counseling and surveillance of alcoholic
CPT/HCPCS: 83036; 84439; 84443; 87081; G0480